=== PATIENT | male | born 1970 | race Caucasian/White ===

== ENCOUNTER 2020-11-14 09:27 | Inpatient (IN) | payer BC ==
[~2020-11-14] VITALS: Ht 172.7 cm; Wt 65.2 kg
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
--- NOTE | 2020-11-14 09:45 | NUR ---
PT REPORTS TAKES DAILY ASPRIN. RESTING ON [employer] W/ CALL LIGHT IN REACH AND SIDE RAILS UPX2. CONNECTED TO ALL MONITORING, VSSDECLAN. [employer]BA BUSINESS DEVELOPMENT OFFICER STUDENT AT BEDSIDE FOR PIV START AND LABS.
--- NOTE | 2020-11-14 09:46 | NUR ---
CSPINE PRECAUTIONS IN PLACE.
--- NOTE | 2020-11-14 09:52 | NUR ---
CHART GIVEN TO PROVIDER, TO KAYLEN MARTIN.
[2020-11-14 10:17] LABS: BASOPHILS % (AUTO) 0 % (0-1); EOSINOPHILS % (AUTO) 0 % (1-7); LYMPHOCYTES % (AUTO) 6 % (22-44); MEAN CORPUSCULAR HEMOGLOBIN 31.6 pg (27.5-34.5); MEAN CORPUSCULAR HGB CONC 35.3 g/dL (33.2-36.2); MEAN PLATELET VOLUME 7.2 fL (7.4-10.4); MONOCYTES % (AUTO) 6 % (2-9); NEUTROPHILS % (AUTO) 88 % (42-75); PLATELET COUNT 203 x10^3/uL (130-400); RED BLOOD COUNT 5.22 x10^6/uL (4.38-5.82); RED CELL DISTRIBUTION WIDTH 13.8 % (9.4-14.8)
--- NOTE | 2020-11-14 10:28 | NUR ---
RAD AT BEDSIDE.
[2020-11-14 10:29] LABS: ALBUMIN 4.1 g/dL (3.4-5.0); ANION GAP 5 mmol/L (5-15); CALCIUM 9.2 mg/dL (8.5-10.1); CHLORIDE 104 mmol/L (98-107)
[2020-11-14] MEDS ORDERED: PLEASE ENTER HEIGHT AND WEIGHT MC SCH (10:30)
[2020-11-14] MEDS ORDERED: SODIUM CHLORIDE FLUSH 10ML SYR IVF ONE (10:30)
[2020-11-14] MEDS ORDERED: PLEASE ENTER ALLERGIES MC SCH (10:30)
[2020-11-14] MEDS ORDERED: SODIUM CHLORIDE 0.9% 1,000ML IVBOLUS ONE (10:30)
[2020-11-14] MEDS ORDERED: LIDOCAINE 2%, 20ML SQ ONE (10:30)
[2020-11-14] MEDS ORDERED: SODIUM CHLORIDE 0.9% 1,000 ML IV ONE (10:30)
[2020-11-14 10:34] LABS: ALANINE AMINOTRANSFERASE 30 U/L (12-78); ALKALINE PHOSPHATASE 68 U/L (45-117); BILIRUBIN,TOTAL 0.5 mg/dL (0.2-1.0); CREATINE KINASE, TOTAL 84 U/L (39-308); CREATININE 1.45 mg/dL (0.7-1.3); FREE T4 (FREE THYROXINE) 0.98 ng/dL (0.76-1.46); TOTAL PROTEIN 7.8 g/dL (6.4-8.2); TROPONIN I < 0.015 ng/mL (0.000-0.045)
--- NOTE | 2020-11-14 10:55 | NUR ---
PT RETURNED FROM CT.
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
--- NOTE | 2020-11-14 11:09 | NUR ---
ALL TESTS RESULTED, PT IS UP FOR RECHECK AT THIS TIME.
[2020-11-14] MEDS ORDERED: BISACODYL 5 MG EC TABLET PO PRN (12:30)
[2020-11-14] MEDS ORDERED: ACETAMINOPHEN 650 MG/20.3 ML UDC PO PRN (12:30)
[2020-11-14] MEDS ORDERED: ONDANSETRON 2MG/ML, 2ML IV PRN (12:30)
[2020-11-14] MEDS ORDERED: ZOLPIDEM 5MG TABLET PO PRN (12:30)
--- NOTE | 2020-11-14 12:51 | NUR ---
PER PT TO GO FOR PACEMAKER AT 1500.
[2020-11-14 13:31] VITALS: BP 151/97
[2020-11-14] MEDS ORDERED: ASPI81TA45 PO (13:31)
[2020-11-14] MEDS ORDERED: LEVO100T5 PO (13:31)
[2020-11-14] MEDS ORDERED: CETI10CA PO (13:31)
[2020-11-14] MEDS ORDERED: FLAX10004 PO (13:31)
[2020-11-14] MEDS ORDERED: CEFAZOLIN PMX 1GM/50ML 50 ML IVPB ONE (14:00)
[2020-11-14] MEDS: SODIUM CHLORIDE 0.9% 1,000 ML IV SCH ×3 (14:00→23:43)
[2020-11-14] MEDS ORDERED: MIDAZOLAM 1 MG/ML, 5ML ONE ×3 (14:21→15:31)
[2020-11-14] MEDS ORDERED: FENTANYL PF 100 MCG/2ML ONE ×3 (14:21→15:31)
[2020-11-14] MEDS ORDERED: CEFAZOLIN 1,000 MG ONE (14:22)
[2020-11-14] MEDS ORDERED: LIDOCAINE 2%, 20ML ONE (14:22)
[2020-11-14] MEDS ORDERED: CEFAZOLIN PMX 1GM/50ML 50 ML ONE (14:22)
[2020-11-14] MEDS ORDERED: LIDOCAINE 1%, 20ML ONE ×2 (14:33→15:31)
[2020-11-14] MEDS ORDERED: DIPHENHYDRAMINE 50 MG/ML, 1ML ONE (14:44)
[2020-11-14] MEDS ORDERED: HOLD MEDICATION MC PRN (17:00)
[2020-11-14] MEDS ORDERED: HYDROcodone/APAP 5/325 TABLET PO PRN (17:00)
[2020-11-14 17:51] VITALS: BP 133/88
[2020-11-14 19:30] VITALS: BP 121/77
[2020-11-14] MEDS: SODIUM CHLORIDE FLUSH 10ML SYR IVF SCH (20:34)
[2020-11-14] MEDS: CEFAZOLIN PMX 1GM/50ML 50 ML IVPB SCH (23:37)
[2020-11-15 02:31] VITALS: BP 124/74
[2020-11-15] MEDS: CEFAZOLIN PMX 1GM/50ML 50 ML IVPB SCH (08:13)
[2020-11-15 08:29] VITALS: BP 137/84
[2020-11-15] MEDS: SODIUM CHLORIDE FLUSH 10ML SYR IVF SCH (08:47)
[2020-11-15] MEDS ORDERED: ACET-2065 PO (08:59)
== END 2020-11-15 10:37 | disposition home or self-care (01) | DRG 244 ==
LOC: ED 11:54 → EDIP 12:11 → 5SO 12:41
PROVIDERS: ADMIT Internal Medicine Cardiovascular Disease; ATTEND Internal Medicine Cardiovascular Disease
PROC: 0JH606Z Insertion of Pacemaker, Dual Chamber into Chest Subcutaneous Tissue and Fascia, Open Approach (ICD-10-PCS; principal; 2020-11-14)
PROC: 02H63JZ Insertion of Pacemaker Lead into Right Atrium, Percutaneous Approach (ICD-10-PCS; 2020-11-14)
PROC: 02HK3JZ Insertion of Pacemaker Lead into Right Ventricle, Percutaneous Approach (ICD-10-PCS; 2020-11-14)
PROC: B5171ZA Fluoroscopy of Left Subclavian Vein using Low Osmolar Contrast, Guidance (ICD-10-PCS; 2020-11-14)
PROC: 4B02XSZ Measurement of Cardiac Pacemaker, External Approach (ICD-10-PCS; 2020-11-15)
DX: I49.5 Sick sinus syndrome (principal); I44.7 Left bundle-branch block, unspecified; Z85.72 Personal history of non-Hodgkin lymphomas; Z95.2 Presence of prosthetic heart valve; Z79.899 Other long term (current) drug therapy
CPT/HCPCS: 33208; 36415; J3490; 70450; 71045; 80053; 82550; 84439; 84443; 84484; 85025; 93005; 96360; 99156; 99157; C1769; C1779; C1785; C1892; G0378; J0690; J2250; J3010; J1200; J7030; Q9967